=== PATIENT | male | born 1965 | race Caucasian/White ===

== ENCOUNTER 2018-03-10 05:17 | Emergency (ER) | payer BC ==
[2018-03-10 07:20] LABS: ADD MAN DIFF? NO
[2018-03-10 07:25] LABS: BASO # 0.1 x10^3/uL (0.0-0.2); BASO % 1 % (0-3); EOS # 0.2 x10^3/uL (0.0-0.7); EOS % 2 % (0-3); HEMATOCRIT 39.9 % (39.0-53.0); HEMOGLOBIN 14.1 g/dL (13.0-17.5); LYMPH # 2.6 x10^3/uL (1.0-4.8); LYMPH % 23 % (24-48); MEAN CORPUSCULAR HEMOGLOBIN 32 pg (25-35); MEAN CORPUSCULAR HGB CONC 36 g/dL (31-37); MEAN CORPUSCULAR VOLUME 89 fL (79-100); MONO # 0.7 x10^3/uL (0.0-1.1); MONO % 6 % (0-9); NEUT # 7.9 x10^3uL (1.8-7.7); NEUT % 69 % (31-73); PLATELET COUNT 356 x10^3/uL (140-400); RED BLOOD COUNT 4.48 x10^6/uL (4.30-5.70); RED CELL DISTRIBUTION WIDTH 14.2 % (11.5-14.5); WHITE BLOOD COUNT 11.5 x10^3/uL (4.0-11.0)
[2018-03-10] MEDS: KETOROLAC 15 MG/ML VIAL. IV (07:29)
[2018-03-10 07:38] LABS: ANION GAP 11 (6-14); BLOOD UREA NITROGEN 9 mg/dL (8-26); BUN/CREATININE RATIO 10 (6-20); CALCIUM 9.9 mg/dL (8.5-10.1); CARBON DIOXIDE 26 mmol/L (21-32); CHLORIDE 102 mmol/L (98-107); CREATININE 0.9 mg/dL (0.7-1.3); GFR 88.3; GLUCOSE 113 mg/dL (70-99); POTASSIUM 3.8 mmol/L (3.5-5.1); SODIUM 139 mmol/L (136-145)
[2018-03-10 07:52] LABS: ALBUMIN 4.3 g/dL (3.4-5.0); ALK PHOS 134 U/L (46-116); ALT (SGPT) 25 U/L (16-63); AST (SGOT) 20 U/L (15-37); TOTAL BILIRUBIN 0.3 mg/dL (0.2-1.0); TOTAL PROTEIN 8.7 g/dL (6.4-8.2)
[2018-03-10] MEDS: KETAMINE HCL 500 MG/10 ML VIAL. IV (07:56)
== END 2018-03-10 08:30 | disposition home or self-care (01) ==
LOC: ER 05:17
DX: M48.54XA Collapsed vertebra, not elsewhere classified, thoracic region, initial encounter for fracture (principal); G89.29 Other chronic pain; R32 Unspecified urinary incontinence; Z88.8 Allergy status to other drugs, medicaments and biological substances
CPT/HCPCS: 36415; 72072; 80053; 85025; 96374; 96375; 99285-25; J1885; J3490

== ENCOUNTER → 2018-03-14 | Outpatient (CLI) | payer BC | END | disposition home or self-care (01) | LOC: KCIC MRI 08:08 | DX: M48.04 Spinal stenosis, thoracic region (principal); M50.322 Other cervical disc degeneration at C5-C6 level; M48.02 Spinal stenosis, cervical region | CPT/HCPCS: 72146 ==